=== PATIENT | male | born 1945 | race Caucasian/White ===

== ENCOUNTER 2019-08-23 12:55 | Emergency (ER) | payer MEDICARE ==
[~2019-08-23] VITALS: Ht 175.3 cm; Wt 79.4 kg
--- NOTE | 2019-08-23 13:15 | NUR ---
Pt came into the ed c/o r foot pain s/p tripped and fall yesterday 05/13. Pt aaox4, vss, breathing even and unlabored on room air w/ nad. Pt connected to the monitor.
[2019-08-23] MEDS ORDERED: TRAMADOL HCL 50 MG TABLET PO ONE (13:30)
[2019-08-23] MEDS ORDERED: TRAMADOL HCL 50 MG TABLET ONE (13:30)
--- NOTE | 2019-08-23 14:35 | NUR ---
Patient discharged to home in stable condition. Written and verbal after care instructions given. Patient verbalizes understanding of instruction.
[2019-08-23 14:36] VITALS: BP 128/71
== END 2019-08-23 14:36 | disposition home or self-care (01) ==
LOC: ER 12:55
DX: M25.571 Pain in right ankle and joints of right foot (principal); I10 Essential (primary) hypertension; Z98.890 Other specified postprocedural states; W01.0XXA Fall on same level from slipping, tripping and stumbling without subsequent striking against object, initial encounter; Y93.89 Activity, other specified; Y92.89 Other specified places as the place of occurrence of the external cause; Y99.8 Other external cause status
CPT/HCPCS: 73610-TC; 73630-TC

== ENCOUNTER 2019-12-06 11:21 | Emergency (ER) | payer MEDICARE ==
[~2019-12-06] VITALS: Ht 175.3 cm; Wt 82.1 kg
[2019-12-06] MEDS ORDERED: LIDOCAINE 1%-EPI 1:100,000 20 ML VIAL ONE (11:39)
[2019-12-06] MEDS ORDERED: TDAP [DIPH/PERTUSSIS/TET] 0.5 ML VIAL IM ONE ×2 (12:00)
[2019-12-06] MEDS ORDERED: ACETAMINOPHEN ES 500 MG TABLET PO ONE (12:00)
[2019-12-06] MEDS ORDERED: ACETAMINOPHEN ES 500 MG TABLET ONE (12:00)
--- NOTE | 2019-12-06 12:10 | NUR ---
RN - ER INITIAL PATIENT CAME IN FOR A DOG BITE LEFT ARM. PATIENT COMPLAING OF SLIGHT PAIN 4/10 . PATIENT IS A/O X4, NO SOB, NO ACUTE RESPIRATORY DISTRESS. PATIENT PAIN 4/10 ON LEFT ARM DUE TO A DOG BITE.
--- NOTE | 2019-12-06 12:10 | NUR ---
RN - ER XRAY OF LEFT ARM
--- NOTE | 2019-12-06 12:10 | NUR ---
RN - ER IRRGATION/ LIDOCANE DR. RAMEY LIDLUCINDA OF LEFT ARM - IRRIGATION OF WOUND EMT. DRESSING KIRLEX WOUND CLEAN AND DRY.
--- NOTE | 2019-12-06 13:16 | NUR ---
Patient discharged to home in stable condition. Written and verbal after care instructions given. Patient verbalizes understanding of instruction.
[2019-12-06 13:18] VITALS: BP 140/92
== END 2019-12-06 13:18 | disposition home or self-care (01) ==
LOC: ER 11:29
DX: S61.412A Laceration without foreign body of left hand, initial encounter (principal); I10 Essential (primary) hypertension; Z98.890 Other specified postprocedural states; Z88.6 Allergy status to analgesic agent; W54.0XXA Bitten by dog, initial encounter; Y93.89 Activity, other specified; Y92.89 Other specified places as the place of occurrence of the external cause; Y99.8 Other external cause status
CPT/HCPCS: 73080; 90471; 90715; 99283; J3490